=== PATIENT | female | born 2000 | race Two or more races ===

== ENCOUNTER 2024-08-29 16:03 | Emergency (ER) | payer OTHER ==
[2024-08-29 16:16] VITALS: BP 104/60; PULSE 80; RESP 18; TEMP 97.4; BMI 22.6
[2024-08-29] MEDS ORDERED: METHOCARBAMOL 500 MG TABLET ONE (16:58)
[2024-08-29] MEDS ORDERED: ACETAMINOPHEN 500 MG TABLET (FP) ONE (16:58)
[2024-08-29] MEDS: ACETAMINOPHEN 500 MG TABLET (FP) PO ONE (17:00)
[2024-08-29] MEDS: METHOCARBAMOL 500 MG TABLET PO ONE (17:00)
== END 2024-08-29 17:30 | disposition home or self-care (01) ==
LOC: JER 16:03 → JERFT 16:03
DX: M25.511 Pain in right shoulder (principal); M54.6 Pain in thoracic spine; V43.52XA Car driver injured in collision with other type car in traffic accident, initial encounter; Y92.410 Unspecified street and highway as the place of occurrence of the external cause
CPT/HCPCS: 73030-TC-RT-FY; 99283-25